=== PATIENT | male | born 1950 | race Caucasian/White ===

== ENCOUNTER → 2017-02-11 | Outpatient (RCR) | payer MEDICARE, OTHER | END | disposition still patient (30) | LOC: MKS.ESL.PT → WSST 01-01 14:00 → MKS.ESL.PT 01-14 12:30 → WSST 01-21 13:15 → MKS.ESL.PT 02-06 14:00 | DX: Z48.3 Aftercare following surgery for neoplasm (principal); Z85.841 Personal history of malignant neoplasm of brain; R42 Dizziness and giddiness; R68.89 Other general symptoms and signs; R13.10 Dysphagia, unspecified | CPT/HCPCS: G8984-GO; G8985-GO; G8990-GP; G8991-GP; G9168-GN; G9169-GN ==

== ENCOUNTER 2017-05-07 15:00 | Outpatient (RCR) | payer MEDICARE, OTHER | END 2017-05-13 | disposition still patient (30) | LOC: MKS.ESL.PT | DX: R48.9 Unspecified symbolic dysfunctions (principal); R26.89 Other abnormalities of gait and mobility; C71.7 Malignant neoplasm of brain stem | CPT/HCPCS: G8984-GO; G8985-GO; G8986-GO; G8990-GP; G8991-GP; G9168-GN; G9169-GN; G9170-GN ==

== ENCOUNTER 2017-05-21 14:00 | Outpatient (RCR) | payer MEDICARE, OTHER | END 2017-05-21 16:40 | disposition home or self-care (01) | LOC: MKS.ESL.PT 14:00 | DX: R26.9 Unspecified abnormalities of gait and mobility (principal) | CPT/HCPCS: G8991-GP; G8992-GP ==